=== PATIENT | female | born 1985 | race African-American/Black ===

== ENCOUNTER 2016-05-16 08:53 | Emergency (ER) | payer MEDICAID ==
[~2016-05-16] VITALS: Ht 157.5 cm; Wt 109.7 kg
[~2016-05-16 08:53] MED LIST: COLA100C3 PO; ERGO1CAP10 PO; METF500T PO
[2016-05-16 08:56] VITALS: BP 113/76; PULSE 99; RESP 16; TEMP 98.9; O2SAT 99
[2016-05-16] MEDS ORDERED: ZOFR4TAB3 SL (09:10)
[2016-05-16] MEDS ORDERED: LOPE2CAP PO (09:10)
--- NOTE | 2016-05-16 09:10 | PD ---
HPI Chief Complaint: Abdominal Pain Time Seen by Provider: 09:02 Travel History International Travel<30 days: No Contact w/Intl Traveler<30days: No Traveled to known affect area: No History of Present Illness HPI This is a 30-year-old female who presents to the emergency department with loose stools that started today. She says she had 2 episodes of diarrhea earlier today. They were nonbloody. She denies any abdominal pain. Her symptoms have been mild. Her children have been sick with a GI bug recently and she thinks she caught it. She denies any associated nausea, vomiting, fevers or chills. She said she had to come get checked out because of her job. She is a automotive professional. She denies any recent antibiotic use or travel. PFSH Past Medical History Hx Anticoagulant Therapy: No Diabetes: No Diminished Hearing: No Genitourinary: Yes ( hx amenorrhea and pid) Respiratory: Yes (ASTHMA) Immunizations Current: No ?: Not : 2 Para: 2 Miscarriage: 0 : 0 Past Surgical History Section: Yes (X2) Gynecologic Surgery: Yes ( ) Social History Alcohol Use: No Tobacco Use: No Substance Use: No Allergies-Medications (Allergen,Severity, Reaction): Coded Allergies: No Known Allergies (Verified , 05/16/16) Reported Meds & Prescriptions Reported Meds & Active Scripts Active Vitamin D (Ergocalciferol) 50,000 Unit Cap 50,000 Units PO Q7D Metformin (Metformin HCl) 500 Mg Tab 500 Mg PO BIDPC With meals Colace (Docusate Sodium) 100 Mg Cap 100 Mg PO DAILY Review of Systems Except as stated in HPI: all other systems reviewed are Neg Physical Exam Narrative GENERAL:Well appearing, no acute distress SKIN: Warm and dry. HEAD: Atraumatic. Normocephalic. EYES: Pupils equal and round. No injection or drainage. ENT: Moist mucous membranes NECK: Trachea midline. CARDIOVASCULAR: Regular rate and rhythm. No murmur appreciated. RESPIRATORY: Clear to auscultation. Breath sounds equal bilaterally. GASTROINTESTINAL: Abdomen soft, non-tender, nondistended. MUSCULOSKELETAL: No obvious deformities. NEUROLOGICAL: Awake and alert. No obvious cranial nerve deficits. Moving all extremities. PSYCHIATRIC: Appropriate mood and affect; insight and judgment normal. Data Data Last Documented VS Vital Signs Date Time Temp Pulse Resp B/P Pulse Ox O2 Delivery O2 Flow Rate FiO2 05/16/16 08:56 98.9 99 16 113/76 99 MDM Medical Decision Making Medical Screen Exam Complete: Yes Emergency Medical Condition: Yes Interpretation(s) Afebrile, mild tachycardia Differential Diagnosis Gastroenteritis, diarrhea, colitis, appendicitis Narrative Course This is a 30-year-old female who presents to the emergency department with diarrhea. Both of her children have been sick with viruses. She is very well- appearing and has a benign abdomen. She's not been vomiting. I don't think she requires any additional diagnostics at this time. 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 She says she did have this followed up and had a colonoscopy which was reassuring. Patient will be discharged home with symptomatic management for viral gastroenteritis. Diagnosis Primary Impression: Viral gastroenteritis Patient Instructions: General Instructions Departure Forms: Tests/Procedures, Work Release Enter return to work date: May 18, 2016 Additional Instructions: If you develop lightheadedness, dizziness, persistent vomiting, inability to eat , or severe abdominal pain return to the emergency department. Followup with your primary care physician in 2-3 days if your symptoms have not resolved. Wash your hands aggressively after using the restroom as to not spread your illness to others. Do not return to work until your symptoms have resolved. Take Zofran as needed for nausea. Med/Other Pt SpecificInfo: Prescription(s) given Scripts Ondansetron Odt (Zofran Odt)4 Mg Tab4 Mg SL Q6HR PRN (Nausea/Vomiting) #15 TAB Prov:Lianet Bonilla MD 05/16/16 Loperamide 2 Mg Cap2 Mg PO DIRECTED PRN (DIARRHEA) #10 CAP One capsule after each loose stool. Not to exceed 8 capsules per day. Prov:Lianet Bonilla MD 05/16/16 Disposition: DISCHARGE HOME Condition: Stable Lianet Bonilla MD May 16, 2016 09:10
[2016-06-24] MEDS ORDERED: ERGO1CAP10 PO (15:23)
[2016-07-15] MEDS ORDERED: MELO-1 PO (14:02)
[2016-07-15] MEDS ORDERED: CYCL1TAB29 PO (14:02)
[2016-07-15] MEDS ORDERED: HYDR-3516 PO (14:02)
[2016-08-12] MEDS ORDERED: MELO7.5T4 PO (14:17)
[2016-08-21] MEDS ORDERED: HYDR-3583 PO (14:19)
[2016-09-11] MEDS ORDERED: HYDR-3583 PO (11:43)
== END 2016-05-16 09:15 | disposition home or self-care (01) ==
LOC: PHED 08:53
DX: A08.4 Viral intestinal infection, unspecified (principal); J45.909 Unspecified asthma, uncomplicated
CPT/HCPCS: 99283

== ENCOUNTER 2016-08-25 10:01 | Emergency (ER) | payer MEDICAID ==
[~2016-08-25] VITALS: Ht 157.5 cm; Wt 73.0 kg
[~2016-08-25 10:01] MED LIST changes: -COLA100C3 PO; +CYCL1TAB29 PO; +HYDR-3583 PO; +LOPE2CAP PO; +MELO7.5T4 PO; -METF500T PO; +ZOFR4TAB3 SL
[2016-08-25 10:13] VITALS: BP 130/81; PULSE 90; RESP 16; TEMP 97.5; O2SAT 97
[2016-08-25] MEDS ORDERED: IBUP800T23 PO (11:46)
[2016-08-25] MEDS ORDERED: AMOX500T PO (11:46)
--- NOTE | 2016-08-25 11:47 | PD ---
HPI Chief Complaint: Cold / Flu Symptoms Time Seen by Provider: 11:25 Travel History International Travel<30 days: No Contact w/Intl Traveler<30days: No Traveled to known affect area: No History of Present Illness HPI 30-year-old female with no significant past medical history presents emergency department for evaluation of left ear pain and sore throat. She reports symptom onset 5 days ago. She reports the pain in the left ear is throbbing, constant, 6 out of 10 severity. She reports sore throat which is constant and worse with swallowing. She denies difficulty swallowing or change in voice. Patient reports history of ear infections in the past with similar symptoms. She denies fevers, chills, nausea, vomiting. She has not used any home remedies for symptoms. [facility] Past Medical History Medical History: Denies Significant Hx Hx Anticoagulant Therapy: No Diabetes: No Diminished Hearing: No Genitourinary: Yes ( hx amenorrhea and pid) Respiratory: Yes (ASTHMA) Immunizations Current: No Tetanus Vaccination: < 5 Years Influenza Vaccination: No ?: Not LMP: SOME TIME LAST MONTH : 2 Para: 2 Miscarriage: 0 : 0 Past Surgical History Surgical History: No Previous Surgery Section: Yes (X2) Gynecologic Surgery: Yes ( ) Social History Alcohol Use: No Tobacco Use: No Substance Use: No Allergies-Medications (Allergen,Severity, Reaction): Coded Allergies: No Known Allergies (Verified , 08/25/16) Reported Meds & Prescriptions Reported Meds & Active Scripts Active Review of Systems Except as stated in HPI: all other systems reviewed are Neg Physical Exam Narrative GENERAL: Alert, well-appearing female. No distress SKIN: Focused skin assessment warm/dry. No rashes HEAD: Atraumatic. Normocephalic. EYES: Pupils equal and round. No scleral icterus. No injection or drainage. ENT: No nasal bleeding or discharge. Mucous membranes pink and moist. Pharynx erythematous with mild tonsillar swelling without exudate. Left TM erythema and bulging, loss of landmarks. NECK: Trachea midline. No JVD. CARDIOVASCULAR: Regular rate and rhythm. No murmur appreciated. RESPIRATORY: No accessory muscle use. Clear to auscultation. Breath sounds equal bilaterally. GASTROINTESTINAL: Abdomen soft, non-tender, nondistended. Hepatic and splenic margins not palpable. MUSCULOSKELETAL: No obvious deformities. No clubbing. No cyanosis. No edema. NEUROLOGICAL: Awake and alert. No obvious cranial nerve deficits. Motor grossly within normal limits. Normal speech. PSYCHIATRIC: Appropriate mood and affect; insight and judgment normal. Data Data Last Documented VS Vital Signs Date Time Temp Pulse Resp B/P Pulse Ox O2 Delivery O2 Flow Rate FiO2 08/25/16 10:13 97.5 90 16 130/81 97 MDM Medical Decision Making Medical Screen Exam Complete: Yes Emergency Medical Condition: Yes Differential Diagnosis Otitis media, viral pharyngitis, strep pharyngitis, URI Narrative Course 30-year-old female presents emergency department for evaluation of left ear pain and sore throat for 5 days. Patient denies fever, chills, difficulty swallowing. On exam patient has symptoms consistent with viral pharyngitis and acute otitis media the left ear. Patient will be treated with antibiotics and NSAIDs. Struck to the follow-up with her primary doctor. Diagnosis Primary Impression: Otitis media Qualified Code: H66.002 - Acute suppurative otitis media of left ear without spontaneous rupture of tympanic membrane, recurrence not specified Additional Impression: Pharyngitis Qualified Code: J02.9 - Pharyngitis, unspecified etiology Referrals: Primary Care Physician Additional Instructions: Take medications as prescribed. Drink plenty of fluids. Follow-up with her primary doctor for reevaluation. Return to emergency department if he developed new or worsening symptoms. Scripts Ibuprofen 800 Mg [id number] Mg PO Q8H PRN (Pain/Inflammation) #30 TAB Prov:Caro Fabian 08/25/16 Amoxicillin 500 Mg [id number] Mg PO TID #21 TAB Ref 0 Prov:Caro Fabian 08/25/16 Disposition: 01 DISCHARGE HOME Condition: Stable Caro Fabian Aug 25, 2016 11:47
[2016-08-25] MEDS ORDERED: IBUP-232 PO (20:25)
== END 2016-08-25 12:00 | disposition home or self-care (01) ==
LOC: PHED 10:01 → PHEFT 12:00
DX: H66.002 Acute suppurative otitis media without spontaneous rupture of ear drum, left ear (principal); J02.9 Acute pharyngitis, unspecified
CPT/HCPCS: 99283

== ENCOUNTER 2016-08-25 19:22 | Emergency (ER) | payer MEDICAID ==
[~2016-08-25] VITALS: Ht 157.5 cm; Wt 107.5 kg
[~2016-08-25 19:22] MED LIST changes: +AMOX500T PO; +IBUP800T23 PO
[2016-08-25 19:29] VITALS: BP 137/84; PULSE 96; RESP 20; TEMP 98.6; O2SAT 98
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
[2016-08-25 19:54] VITALS: BP 145/66; PULSE 95; RESP 20; O2SAT 100
[2016-08-25] MEDS ORDERED: DIAZEPAM 5 MG TAB PO ONE (20:00)
[2016-08-25] MEDS ORDERED: IBUPROFEN 600 MG TAB PO ONE (20:00)
[2016-08-25] MEDS ORDERED: IBUP-232 PO (20:25)
== END 2016-08-25 20:57 | disposition home or self-care (01) ==
LOC: PHED 19:22
DX: M54.2 Cervicalgia (principal); V43.52XA Car driver injured in collision with other type car in traffic accident, initial encounter; Y92.481 Parking lot as the place of occurrence of the external cause
CPT/HCPCS: 99283

== ENCOUNTER 2016-11-19 20:21 | Emergency (ER) | payer OTHER, MEDICAID ==
[~2016-11-19] VITALS: Ht 177.8 cm; Wt 108.0 kg
[~2016-11-19 20:21] MED LIST changes: +ALBU6.7H INH; -AMOX500T PO; -CYCL1TAB29 PO; -ERGO1CAP10 PO; -IBUP800T23 PO; -LOPE2CAP PO; +MELO-1 PO; -MELO7.5T4 PO; -ZOFR4TAB3 SL
[2016-11-19 20:27] VITALS: BP 131/78; PULSE 90; RESP 18; TEMP 98.8; O2SAT 98
[2016-11-19] MEDS ORDERED: METHOCARBAMOL 500 MG TAB PO ONE (21:30)
[2016-11-19] MEDS ORDERED: IBUPROFEN 800 MG TAB PO ONE (21:30)
[2016-11-19] MEDS ORDERED: IBUP-232 PO (21:32)
[2016-11-19] MEDS ORDERED: ROBA750T PO (21:32)
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
[2016-11-27] MEDS ORDERED: PERI8.6T PO (08:43)
[2016-11-27] MEDS ORDERED: METF500T PO (08:43)
[2016-11-27] MEDS ORDERED: ALBUAER3 INH (08:43)
[2016-11-27] MEDS ORDERED: DIALCAP PO (08:43)
[2016-11-27] MEDS ORDERED: HYDR-3583 PO (11:35)
[2016-12-16] MEDS ORDERED: HYDR-3583 PO (09:57)
== END 2016-11-19 22:05 | disposition home or self-care (01) ==
LOC: PHEFT 20:21
DX: S16.1XXA Strain of muscle, fascia and tendon at neck level, initial encounter (principal); R51 Headache; M54.5 Low back pain; J45.909 Unspecified asthma, uncomplicated; V43.52XA Car driver injured in collision with other type car in traffic accident, initial encounter; Y92.410 Unspecified street and highway as the place of occurrence of the external cause; Y99.8 Other external cause status
CPT/HCPCS: 99283

== ENCOUNTER 2017-04-02 10:08 | Emergency (ER) | payer MEDICAID ==
[~2017-04-02] VITALS: Ht 157.5 cm; Wt 109.1 kg
[~2017-04-02 10:08] MED LIST changes: -ALBU6.7H INH; +ALBUAER3 INH; +DOCU8.6T PO; +IBUP-232 PO; -MELO-1 PO; +METF500T PO; +ROBA750T PO
[2017-04-02 10:19] VITALS: BP 149/74; PULSE 96; RESP 16; TEMP 98.3; O2SAT 98
[2017-04-02] MEDS ORDERED: AMOX875T PO (11:40)
[2017-04-02] MEDS ORDERED: FLUT1SPR5 EACH NARE (11:40)
--- NOTE | 2017-04-02 11:42 | PD ---
HPI Chief Complaint: Cold / Flu Symptoms Time Seen by Provider: 11:12 Travel History International Travel<30 days: No Contact w/Intl Traveler<30days: No Traveled to known affect area: No History of Present Illness HPI 31-year-old female presents for evaluation. For the past 4 days she has had cough, congestion, myalgias, maximum temperature 90.9 degrees at home. Over the past few days she has also developed a left ear pain which is throbbing and constant with no alleviating factors. She reports that her daughter had similar symptoms last week. Denies rash, recent travel, nausea or vomiting, abdominal pain. Denies dysuria. She has no other complaints at this time. PFSH Past Medical History Hx Anticoagulant Therapy: No Diabetes: No Diminished Hearing: No Genitourinary: Yes ( hx amenorrhea and pid) Musculoskeletal: Yes (CHRONIC BACK PAIN) Respiratory: Yes (ASTHMA) Immunizations Current: No ?: Not LMP: 2 WEEKS AGO : 2 Para: 2 Miscarriage: 0 : 0 Past Surgical History Section: Yes (x2) Gynecologic Surgery: Yes ( x2) Social History Alcohol Use: No Tobacco Use: No Substance Use: No Allergies-Medications (Allergen,Severity, Reaction): Coded Allergies: amoxicillin (Verified Allergy, Unknown, Rash, 04/02/17) Reported Meds & Prescriptions Reported Meds & Active Scripts Active Clindamycin (Clindamycin HCl) 300 Mg Cap 300 Mg PO TID 10 Days Flonase Nasal Panther Burn (Fluticasone Nasal Panther Burn) 50 Mcg/Act Panther Burn 100 Mcg EACH NARE BID Hydrocodone-Acetaminophen 10-325 mg Tab 1 Tab PO Q6H PRN Proair Hfa 8.5 GM Inh (Albuterol Sulfate) 90 Mcg/Act Aer 2 Puff INH Q6H PRN 108 mcg/actuation Metformin (Metformin HCl) 500 Mg Tab 500 Mg PO TIDPC With meals Review of Systems Except as stated in HPI: all other systems reviewed are Neg Physical Exam Narrative GENERAL: Well-developed well-nourished female in no acute distress SKIN: Warm and dry. HEAD: Atraumatic. Normocephalic. EYES: Pupils equal and round. No scleral icterus. No injection or drainage. ENT: No nasal bleeding or discharge. Mucous membranes pink and moist. Left tympanic membrane is bulging and erythematous. Right tympanic membrane appears normal without erythema or air fluid level. NECK: Trachea midline. No JVD. No lymphadenopathy CARDIOVASCULAR: Regular rate and rhythm. No murmur appreciated. RESPIRATORY: No accessory muscle use. Clear to auscultation. Breath sounds equal bilaterally. No crackles no wheezing or rhonchi GASTROINTESTINAL: Abdomen soft, non-tender, nondistended. Hepatic and splenic margins not palpable. Data Data Last Documented VS Vital Signs Date Time Temp Pulse Resp B/P (MAP) Pulse Ox O2 Delivery O2 Flow Rate FiO2 04/02/17 10:19 98.3 96 16 149/74 (99) 98 Orders Orders Influenzae A/B Antigen (04/02/17 11:10) Ed Discharge Order (04/02/17 11:59) [facility] Medical Decision Making Medical Screen Exam Complete: Yes Emergency Medical Condition: Yes Medical Record Reviewed: Yes Differential Diagnosis Otitis media, bronchitis, influenza, pneumonia Narrative Course 31-year-old female with 4 days of cough, congestion, left ear pain. Examination reveals left otitis media. She appears well overall. Her lungs are clear to auscultation. Influenza antigen test was performed and is negative. The patient is being discharged with Flonase and amoxicillin. Prior to being the discharge the patient now says that she thinks she is allergic to amoxicillin. She will be given clindamycin as an alternative. Diagnosis Primary Impression: Left otitis media Additional Impression: Upper respiratory infection Additional Instructions: Stay well hydrated and well-nourished, get plenty of rest. Medication as prescribed. Follow-up with primary care physician as needed and return for any emergent medical conditions. Med/Other Pt SpecificInfo: Prescription(s) given Scripts Clindamycin (Clindamycin) 300 Mg Cap 300 MG PO TID for Infection for 10 Days, CAP 0 Refills Prov: Page Parks MD 04/02/17 Fluticasone Nasal Panther Burn (Flonase Nasal Panther Burn) 50 Mcg/Act Panther Burn 100 MCG EACH NARE BID for Allergies, #1 BOTTLE 0 Refills Prov: Page Parks MD 04/02/17 Disposition: 01 DISCHARGE HOME Condition: Stable Bryan Lara Apr 02, 2017 11:42
[2017-04-02] MEDS ORDERED: CLIN300C5 PO (12:12)
== END 2017-04-02 12:18 | disposition home or self-care (01) ==
LOC: PHED 10:08 → PHEFT 12:18
DX: H66.92 Otitis media, unspecified, left ear (principal); J06.9 Acute upper respiratory infection, unspecified; G89.29 Other chronic pain; M54.9 Dorsalgia, unspecified; J45.909 Unspecified asthma, uncomplicated
CPT/HCPCS: 87804; 99284

== ENCOUNTER 2017-04-25 13:27 | Emergency (ER) | payer MEDICAID ==
[~2017-04-25 13:27] MED LIST changes: +CLIN300C5 PO; -DOCU8.6T PO; +FLUT1SPR5 EACH NARE; -IBUP-232 PO; -ROBA750T PO
[2017-04-25 13:35] VITALS: BP 112/67; PULSE 96; RESP 16; TEMP 99; O2SAT 100
[2017-04-25] MEDS ORDERED: ZITHTAB PO (14:12)
--- NOTE | 2017-04-25 14:12 | PD ---
HPI Chief Complaint: ENT Complaint Time Seen by Provider: 14:04 Travel History International Travel<30 days: No Contact w/Intl Traveler<30days: No Traveled to known affect area: No History of Present Illness HPI 31-year-old female complains of elevated blood pressure and sore throat. Patient states the sore throat started about 4 days ago. Patient states that she checked her blood patient home and was elevated yesterday and today. Patient denies any history of hypertension. Patient denies any headache. Patient denies any fever. Patient states that she has mild dry cough and congestion. Patient denies any nausea vomiting diarrhea. PFSH Past Medical History Hx Anticoagulant Therapy: No Diabetes: No Diminished Hearing: No Genitourinary: Yes ( hx amenorrhea and pid) Musculoskeletal: Yes (CHRONIC BACK PAIN) Respiratory: Yes (ASTHMA) Immunizations Current: No Influenza Vaccination: No ?: Not LMP: 2 WEEKS : 2 Para: 2 Miscarriage: 0 : 0 Past Surgical History Section: Yes (x2) Gynecologic Surgery: Yes ( x2) Social History Alcohol Use: No Tobacco Use: No Substance Use: No Allergies-Medications (Allergen,Severity, Reaction): Coded Allergies: amoxicillin (Verified Allergy, Unknown, Rash, 04/25/17) cyclobenzaprine (Verified Allergy, Unknown, 04/25/17) Reported Meds & Prescriptions Reported Meds & Active Scripts Active Metformin (Metformin HCl) 500 Mg Tab 500 Mg PO TIDPC With meals Review of Systems General / Constitutional: No: Fever Eyes: No: Visual changes HENT: Positive: Sore Throat, No: Headaches Cardiovascular: No: Chest Pain or Discomfort Respiratory: No: Shortness of Breath Gastrointestinal: No: Abdominal Pain Genitourinary: No: Dysuria Musculoskeletal: No: Pain Skin: No Rash Neurologic: No: Weakness Psychiatric: No: Depression Endocrine: No: Polydipsia Hematologic/Lymphatic: No: Easy Bruising Physical Exam Narrative GENERAL: Well-nourished, well-developed patient. SKIN: Focused skin assessment warm/dry. HEAD: Normocephalic. EYES: No scleral icterus. No injection or drainage. TM: Clear. Throat: Mild erythematous. NECK: Supple, trachea midline. No JVD. Patient has mild anterior cervical lymphadenopathy. No meningismus CARDIOVASCULAR: Regular rate and rhythm without murmurs, gallops, or rubs. RESPIRATORY: Breath sounds equal bilaterally. No accessory muscle use. GASTROINTESTINAL: Abdomen soft, non-tender, nondistended. MUSCULOSKELETAL: No cyanosis, or edema. BACK: Nontender without obvious deformity. No CVA tenderness. Data Data Last Documented VS Vital Signs Date Time Temp Pulse Resp B/P (MAP) Pulse Ox O2 Delivery O2 Flow Rate FiO2 04/25/17 13:35 99.0 96 16 112/67 (82) 100 MDM Medical Decision Making Medical Screen Exam Complete: Yes Emergency Medical Condition: Yes Differential Diagnosis Differential diagnosis including pharyngitis, elevated blood pressure. Narrative Course 31-year-old female with sore throat. Patient checked her blood pressure at home for the past 2 days and was elevated. Blood pressures 112/67 today. Diagnosis Primary Impression: Pharyngitis Qualified Codes: J02.9 - Acute pharyngitis, unspecified Patient Instructions: General Instructions Additional Instructions: Zithromax as directed. Tylenol for fever. Follow-up with personal physician for blood pressure check. Return if worse. Med/Other Pt SpecificInfo: Prescription(s) given Scripts Azithromycin (Zithromax Z-Jude) 250 Mg Dspk 250 MG PO DIRECTED for Infection, #1 DSPK 0 Refills 500 MG (2 tabs) day 1, then 1 tab days 2-5. Prov: Amandeep Lopez MD 04/25/17 Disposition: 01 DISCHARGE HOME Condition: Stable Amandeep Lopez MD Apr 25, 2017 14:12
== END 2017-04-25 14:19 | disposition home or self-care (01) ==
LOC: PHEFT 13:27
DX: J02.9 Acute pharyngitis, unspecified (principal); J45.909 Unspecified asthma, uncomplicated; Z88.0 Allergy status to penicillin
CPT/HCPCS: 99283